=== PATIENT | female | born 1955 | race Two or more races ===

== ENCOUNTER 2020-07-10 05:50 | Day surgery (SDC) | payer OTHER ==
[~2020-07-10 05:50] MED LIST: HYOSCYAMINE0.125 M1 SL; INTESTINEX1 CA1 PO; LACTULOSE20 GM/30 M PO; PROTONIX40 MG PO
== END 2020-07-10 09:45 | disposition home or self-care (01) ==
LOC: AMB-ENDOS 05:50
PROVIDERS: ATTEND Surgery
DX: K63.5 Polyp of colon (principal); Z20.828 Contact with and (suspected) exposure to other viral communicable diseases